=== PATIENT | female | born 2000 | race Two or more races ===

== ENCOUNTER 2023-09-14 14:29 | Emergency (ER) | payer OTHER ==
[~2023-09-14] VITALS: Ht 167.6 cm; Wt 59.0 kg
[2023-09-14] MEDS ORDERED: ESCITALOPRAM OX20 MG PO (14:52)
[2023-09-14] MEDS ORDERED: ANTIFUNGAL113 GM TOP (17:23)
[2023-09-14] MEDS ORDERED: DUI500 PO (17:23)
== END 2023-09-14 17:28 | disposition home or self-care (01) ==
LOC: ER 14:29 → EDBD 15:00 → ER 17:28
DX: S91.342A Puncture wound with foreign body, left foot, initial encounter (principal); S91.341A Puncture wound with foreign body, right foot, initial encounter; T63.691A Toxic effect of contact with other venomous marine animals, accidental (unintentional), initial encounter; Y92.832 Beach as the place of occurrence of the external cause; Y93.89 Activity, other specified; Z91.018 Allergy to other foods